=== PATIENT | male | born 1945 | race African-American/Black ===

== ENCOUNTER 2018-04-26 14:53 | Emergency (ER) | payer BC ==
[2018-04-26 16:05] LABS: #Lymphocytes 0.7 thou/uL (1.20-3.40); #Monocytes 0.6 thou/uL (0.11-0.59); %Basophils 0.5 % (0.0-1.0); %Eosinophils 0.2 % (0.0-10.0); %Lymphocytes 10.8 % (21.0-51.0); %Neutrophils 79.6 % (42.0-75.0); Hemoglobin 13.9 g/dL (14.0-18.0); Mean Corpuscular HGB CONC 33.8 g/dL (32.0-36.0); Mean Corpuscular Hemoglobin 35.1 pg (27.0-31.0); Mean Platelet Volume 6.9 fL (7.4-10.4); Platelet Count 179 thou/uL (130-400); Red Blood Cell (RBC) Count 3.95 mill/uL (4.70-6.10); White Blood Cell (WBC) Count 6.3 thou/uL (4.8-10.8)
[2018-04-26 16:15] LABS: Acetaminophen Less than 6.0 mcg/mL (10.0-30.0); Alcohol Less than 10 mg/dL (Less than 10); Salicylate Less than 8.0 mg/dL (15.0-30.0)
[2018-04-26] MEDS ORDERED: Multivitamins, Adult 10 ML, Thiamine HCl 100 MG, Folic Acid 1 MG in Dextrose 5 %-0.45 %... IV ONE (16:15)
[2018-04-26 16:18] LABS: ALT (SGPT) 52 U/L (8-55); AST (SGOT) 107 U/L (5-34); Albumin 4.6 g/dL (3.4-4.8); Alkaline Phosphatase 103 U/L (40-150); Anion Gap 20 mmol/L (10-20); BUN (Urea Nitrogen) 6 mg/dL (8.4-25.7); Bilirubin, Total 0.9 mg/dL (0.2-1.2); CK (CPK) 610 U/L (30-200); Calc. Creatinine Clearance 0 mL/min (70-130); Carbon Dioxide 22 mmol/L (23-31); Chloride 102 mmol/L (98-107); Estimated GFR-MDRD Greater than 90; Globulin 4.1 g/dL (2.4-3.5); Glucose 112 mg/dL (80-115); Lipase 16 U/L (8-78); Magnesium 1.9 mg/dL (1.6-2.6); PTT 33.5 SEC (22.9-36.1); Potassium 4.1 mmol/L (3.5-5.1); Protein, Total 8.7 g/dL (5.8-8.1); Prothrombin Time 13.5 SEC (12.0-14.7); Sodium 140 mmol/L (136-145)
[2018-04-26 16:21] LABS: CKMB 5.8 ng/mL (0-6.6); Troponin I Less than 0.010 ng/mL (< 0.028)
[2018-04-26 16:51] LABS: Bilirubin Negative (Negative); Blood, Urine Negative (Negative); Clarity CLEAR (Clear); Glucose, Urine (Dipstick) Negative (Negative); Leukocyte Trace (Negative); Nitrite Negative (Negative); Protein, Urine (Dipstick) 100 mg/dL (Neg-Trace); Specific Gravity, Urine 1.019 (1.002-1.036); pH, Urine 8.5 (5.0-9.0)
[2018-04-26 16:54] LABS: Bacteria/HPF None Seen HPF (None Seen); Hyaline Casts/LPF 0-3 HYALINE CAST LPF (0-3 Hyaline); Pathc Cast-AUWi Flag 0.14 (0-2.49); RBC/HPF 0-3 HPF (0-3); Squamous Epithelial 0-3 HPF (0-3); WBC/HPF None Seen HPF (0-3)
[2018-04-26 16:57] LABS: Renal Epithelial None Seen HPF (0-3); Transitional Epithelial NONE SEEN HPF (0-3)
[2018-04-26 17:01] LABS: Amphetamine Not Detected (NotDetected); Barbiturates Screen Not Detected (NotDetected); Benzodiazepine Screen Not Detected (NotDetected); Cocaine Metabolite Screen Not Detected (NotDetected); Medtox Control Line Valid? VALID (VALID); Medtox Reader # READER 4; Methadone Not Detected (NotDetected); Methamphetamine Not Detected (NotDetected); Opiate Screen Not Detected (NotDetected); Oxycodone Screen Not Detected (NotDetected); Phencyclidine (PCP) Not Detected (NotDetected); THC/Cannabinoid Screen Not Detected (NotDetected); Tricyclic Screen Not Detected (NotDetected)
--- NOTE | 2018-04-26 17:11 | RAD ---
AP CHEST: Indication: Vomiting, shaking. Comparison: 10-15-05 FINDINGS: The lungs are clear. Cardiomediastinal silhouette is within normal limits. There is mild scattered de generative change. IMPRESSION: No acute cardiopulmonary abnormality. POS: [facility]
--- NOTE | 2018-04-26 17:37 | CT ---
CT BRAIN WITHOUT CONTRAST: Indication: Altered mental status with vomiting and shaking. Comparison: CT of the brain with and without contrast, 08-12-05. FINDINGS: There is generalized cerebral and cerebellar atrophy. There are calcifications involving the globus p allidus. Septum pellucidum and third ventricle are midline. Mastoid air cells and visualized paranasa l sinuses are clear. There are vascular calcifications involving the major intracranial arteries. IMPRESSION: 1. No acute intracranial abnormality. 2. Generalized cerebral and cerebellar atrophy. POS: [facility]
== END 2018-04-26 18:16 | disposition home or self-care (01) ==
LOC: ERS 14:53
DX: F10.10 Alcohol abuse, uncomplicated (principal); F03.90 Unspecified dementia, unspecified severity, without behavioral disturbance, psychotic disturbance, mood disturbance, and anxiety; I10 Essential (primary) hypertension; E78.5 Hyperlipidemia, unspecified; Z79.899 Other long term (current) drug therapy
CPT/HCPCS: 36415; 70450; 71045; 80053; 80306; 80307; 81003; 81015; 82140; 82550; 82553; 83690; 83735; 84443; 84484; 85025; 85610; 85730; 93005; 96365; 96366; J3411; J7042

== ENCOUNTER 2022-02-24 14:03 | Inpatient (IN) | payer BC, MEDICARE ==
[~2022-02-24 14:03] MED LIST: Iopamidol-370 76% 500 ML 1 ML ONE
[2022-02-24 16:31] LABS: #Lymphocytes 0.5 thou/uL (1.20-3.40); #Monocytes 0.6 thou/uL (0.11-0.59); #Neutrophils 9.8 thou/uL (1.40-6.50); %Basophils 0.1 % (0.0-1.0); %Eosinophils 0.1 % (0.0-10.0); %Lymphocytes 4.9 % (21.0-51.0); %Monocytes 5.3 % (0.0-10.0); %Neutrophils 89.6 % (42.0-75.0); Hemoglobin 13.5 g/dL (14.0-18.0); Mean Corpuscular Hemoglobin 35.9 pg (27.0-31.0); Mean Platelet Volume 7.5 fL (7.4-10.4); Platelet Count 123 thou/uL (130-400); RBC Distribution Width 12.7 % (11.5-14.5); Red Blood Cell (RBC) Count 3.76 mill/uL (4.70-6.10); White Blood Cell (WBC) Count 10.9 thou/uL (4.8-10.8)
[2022-02-24 16:37] LABS: Bacteria/HPF None Seen HPF (None Seen); Bilirubin Negative (Negative); Blood, Urine Trace (Negative); Clarity Clear (Clear); Glucose, Urine (Dipstick) 50 mg/dL (Negative); Ketone, Urine Greater than 150 mg/dL (Negative); Leukocyte Negative Leu/uL (Negative); Nitrite Negative (Negative); Protein, Urine (Dipstick) 100 mg/dL (Neg-Trace); RBC/HPF 0-3 HPF (0-3); Squamous Epithelial 0-3 HPF (0-3); Urobilinogen 6 mg/dL (Less than 2); WBC/HPF 0-3 HPF (0-3); pH, Urine 5.5 (5.0-9.0)
[2022-02-24 16:52] LABS: ALT (SGPT) 47 U/L (8-55); AST (SGOT) 105 U/L (5-34); Albumin 4.4 g/dL (3.4-4.8); Alkaline Phosphatase 110 U/L (40-110); Anion Gap 26 mmol/L (10-20); BUN (Urea Nitrogen) 12 mg/dL (8.4-25.7); Bilirubin, Total 2.3 mg/dL (0.2-1.2); Calc. Creatinine Clearance 0 mL/min (70-130); Calcium 10.2 mg/dL (7.8-10.44); Carbon Dioxide 22 mmol/L (23-31); Chloride 97 mmol/L (98-107); Globulin 3.9 g/dL (2.4-3.5); Glucose 121 mg/dL (83-110); Lipase 141 U/L (8-78); Potassium 3.7 mmol/L (3.5-5.1); Protein, Total 8.3 g/dL (5.8-8.1); Sodium 141 mmol/L (136-145)
[2022-02-24 16:57] LABS: MDiff Complete? YES; Macrocytosis SLIGHT = 6-15 cells (100X) (0-5/hpf); Platelet Morphology Comment Appears Decreased; Polychromasia SLIGHT = 2-3 cells (100X) (0-2/hpf); Stomatocytes SLIGHT = 2-5 cells (100X) (0-1/hpf)
[2022-02-24] MEDS ORDERED: Thiamine HCl 200 MG/2 ML VIAL SLOW IVP SCH (19:30)
[2022-02-24] MEDS ORDERED: Acetaminophen 650 MG Suppository PR PRN (19:50)
[2022-02-24] MEDS ORDERED: Acetaminophen 325 MG TAB PO PRN (19:50)
[2022-02-24] MEDS ORDERED: Lorazepam 2 MG/ML VIAL IM PRN (19:50)
[2022-02-24] MEDS ORDERED: Ondansetron ODT 4 MG TAB PO PRN ×2 (19:50)
[2022-02-24] MEDS ORDERED: Lorazepam 1 MG TAB PO PRN (19:50)
[2022-02-24] MEDS ORDERED: Electrolyte Replacement Protocol 1 EACH FS SCH (20:00)
[2022-02-24] MEDS ORDERED: Folic Acid 1 MG TAB PO SCH (20:15)
[2022-02-24] MEDS ORDERED: Multivit, Therapeutic 1 TAB PO SCH (20:15)
[2022-02-24 20:33] LABS: #Lymphocytes 0.5 thou/uL (1.20-3.40); #Monocytes 0.6 thou/uL (0.11-0.59); #Neutrophils 7.2 thou/uL (1.40-6.50); %Eosinophils 0.2 % (0.0-10.0); %Lymphocytes 5.9 % (21.0-51.0); %Monocytes 6.7 % (0.0-10.0); %Neutrophils 87.2 % (42.0-75.0); Hemoglobin 12.9 g/dL (14.0-18.0); Mean Corpuscular HGB CONC 33.2 g/dL (32.0-36.0); Mean Corpuscular Hemoglobin 36.3 pg (27.0-31.0); Mean Platelet Volume 7.4 fL (7.4-10.4); Platelet Count 117 thou/uL (130-400); RBC Distribution Width 12.8 % (11.5-14.5); Red Blood Cell (RBC) Count 3.54 mill/uL (4.70-6.10); White Blood Cell (WBC) Count 8.2 thou/uL (4.8-10.8)
[2022-02-24 20:39] LABS: ALT (SGPT) 41 U/L (8-55); AST (SGOT) 88 U/L (5-34); Alkaline Phosphatase 94 U/L (40-110); Anion Gap 23 mmol/L (10-20); BUN (Urea Nitrogen) 9 mg/dL (8.4-25.7); Bilirubin, Direct 1.2 mg/dL (0.1-0.3); Bilirubin, Total 1.9 mg/dL (0.2-1.2); Calc. Creatinine Clearance 0 mL/min (70-130); Carbon Dioxide 18 mmol/L (23-31); Chloride 99 mmol/L (98-107); Globulin 3.3 g/dL (2.4-3.5); Glucose 322 mg/dL (83-110); Magnesium 1.4 mg/dL (1.6-2.6); Potassium 3.8 mmol/L (3.5-5.1); Protein, Total 7.3 g/dL (5.8-8.1); Sodium 136 mmol/L (136-145)
[2022-02-24 20:46] LABS: Phosphorus 1.6 mg/dL (2.3-4.7)
[2022-02-24] MEDS: Lorazepam 1 MG TAB PO SCH (21:47)
[2022-02-24] MEDS: Ondansetron PF 4 MG/2 ML Vial IVP PRN (21:47)
[2022-02-24] MEDS ORDERED: Sodium Chloride 0.9% (PF) 10 ML VIAL FS PRN (22:15)
[2022-02-24] MEDS ORDERED: Pantoprazole 40 MG VIAL IVP SCH (22:30)
[2022-02-24] MEDS ORDERED: Potassium Phosphate 15 MMOL in Sodium Chloride 0.9% 100 ML IVPB SCH (23:59)
[2022-02-24] MEDS ORDERED: Magnesium Sulfate In Water 4 GM in Premix Bag 1 BAG IVPB SCH (23:59)
[2022-02-25 00:36] LABS: Amphetamine Not Detected (NotDetected); Barbiturates Screen Not Detected (NotDetected); Benzodiazepine Screen Not Detected (NotDetected); Cocaine Metabolite Screen Not Detected (NotDetected); Methadone Not Detected (NotDetected); Methamphetamine Not Detected (NotDetected); Opiate Screen Not Detected (NotDetected); Oxycodone Screen Not Detected (NotDetected); Phencyclidine (PCP) Not Detected (NotDetected); THC/Cannabinoid Screen Not Detected (NotDetected); Tricyclic Screen Not Detected (NotDetected)
[2022-02-25] MEDS: Lorazepam 1 MG TAB PO SCH ×4 (02:30→20:03)
[2022-02-25 06:19] LABS: #Lymphocytes 0.7 thou/uL (1.20-3.40); #Monocytes 0.7 thou/uL (0.11-0.59); #Neutrophils 6.1 thou/uL (1.40-6.50); %Basophils 0.3 % (0.0-1.0); %Eosinophils 0.6 % (0.0-10.0); %Lymphocytes 9.2 % (21.0-51.0); %Monocytes 9.6 % (0.0-10.0); %Neutrophils 80.3 % (42.0-75.0); Hemoglobin 13.4 g/dL (14.0-18.0); Mean Corpuscular Hemoglobin 35.8 pg (27.0-31.0); Mean Platelet Volume 7.8 fL (7.4-10.4); Platelet Count 124 thou/uL (130-400); RBC Distribution Width 12.8 % (11.5-14.5); Red Blood Cell (RBC) Count 3.74 mill/uL (4.70-6.10); White Blood Cell (WBC) Count 7.6 thou/uL (4.8-10.8)
[2022-02-25 06:43] LABS: Anion Gap 18 mmol/L (10-20); BUN (Urea Nitrogen) 7 mg/dL (8.4-25.7); Calc. Creatinine Clearance 76 mL/min (70-130); Calcium 9.3 mg/dL (7.8-10.44); Carbon Dioxide 23 mmol/L (23-31); Chloride 100 mmol/L (98-107); Glucose 126 mg/dL (83-110); Potassium 3.2 mmol/L (3.5-5.1); Sodium 138 mmol/L (136-145)
[2022-02-25] MEDS ORDERED: Potassium Chloride 20 MEQ TAB PO SCH (07:15)
[2022-02-25] MEDS: Folic Acid 1 MG TAB PO SCH (09:22)
[2022-02-25] MEDS: Multivit, Therapeutic 1 TAB PO SCH (09:22)
[2022-02-25] MEDS: Pantoprazole 40 MG VIAL IVP SCH (09:22)
[2022-02-25] MEDS: Enoxaparin Sodium 40 MG/0.4 ML SYRINGE SC SCH (09:23)
[2022-02-25 11:35] LABS: Syphilis Antibody Nonreactive (Nonreactive); Syphilis Antibody Index 0.22 S/CO (<1.00 Non-Reactive)
[2022-02-25 12:35] LABS: SARS-CoV-2 PCR by NAA Not Detected (NotDetected)
[2022-02-25] MEDS: Thiamine HCl 200 MG/2 ML VIAL SLOW IVP SCH (20:02)
[2022-02-25] MEDS: Lorazepam 1 MG TAB PO PRN (23:49)
[2022-02-26] MEDS: Lorazepam 1 MG TAB PO SCH ×3 (01:01→13:44)
[2022-02-26] MEDS: Lorazepam 1 MG TAB PO PRN ×2 (05:05→13:00)
[2022-02-26 06:24] LABS: Mean Corpuscular HGB CONC 32.9 g/dL (32.0-36.0); Mean Corpuscular Hemoglobin 35.8 pg (27.0-31.0); RBC Distribution Width 12.6 % (11.5-14.5); Red Blood Cell (RBC) Count 4.48 mill/uL (4.70-6.10); White Blood Cell (WBC) Count 8.9 thou/uL (4.8-10.8)
[2022-02-26 06:37] LABS: #Lymphocytes 1.2 thou/uL (1.20-3.40); #Monocytes 0.9 thou/uL (0.11-0.59); #Neutrophils 6.7 thou/uL (1.40-6.50); %Basophils 0.2 % (0.0-1.0); %Eosinophils 0.5 % (0.0-10.0); %Monocytes 9.7 % (0.0-10.0); %Neutrophils 75.6 % (42.0-75.0); MDiff Complete? YES; Macrocytosis SLIGHT = 6-15 cells (100X) (0-5/hpf); Platelet Count 94 thou/uL (130-400); Platelet Morphology Comment Appears Decreased
[2022-02-26 07:00] LABS: Anion Gap 24 mmol/L (10-20); BUN (Urea Nitrogen) 9 mg/dL (8.4-25.7); Calc. Creatinine Clearance 70 mL/min (70-130); Calcium 9.5 mg/dL (7.8-10.44); Carbon Dioxide 12 mmol/L (23-31); Chloride 99 mmol/L (98-107); Glucose 140 mg/dL (83-110); Potassium 5.1 mmol/L (3.5-5.1); Sodium 130 mmol/L (136-145)
[2022-02-26] MEDS: Multivit, Therapeutic 1 TAB PO SCH (09:02)
[2022-02-26] MEDS: Folic Acid 1 MG TAB PO SCH (09:02)
[2022-02-26] MEDS: Pantoprazole 40 MG VIAL IVP SCH (09:03)
[2022-02-26] MEDS: Enoxaparin Sodium 40 MG/0.4 ML SYRINGE SC SCH (11:59)
[2022-02-26] MEDS: Multivitamins, Adult 10 ML, Folic Acid 1 MG, Thiamine HCl 100 MG in Dextrose 5 %-0.45 %... IV SCH (13:43)
[2022-02-26] MEDS: Lorazepam 0.5 MG TAB PO SCH (19:51)
[2022-02-26] MEDS ORDERED: Lorazepam 1 MG TAB PO PRN (19:51)
[2022-02-26] MEDS: Thiamine HCl 200 MG/2 ML VIAL SLOW IVP SCH (20:00)
[2022-02-27] MEDS: Lorazepam 0.5 MG TAB PO SCH ×3 (00:39→14:51)
[2022-02-27 07:24] LABS: #Eosinphils 0.1 thou/uL (0.0-0.7); #Lymphocytes 0.6 thou/uL (1.20-3.40); #Monocytes 0.6 thou/uL (0.11-0.59); #Neutrophils 5.2 thou/uL (1.40-6.50); %Basophils 0.1 % (0.0-1.0); %Eosinophils 0.9 % (0.0-10.0); %Lymphocytes 8.8 % (21.0-51.0); %Monocytes 8.7 % (0.0-10.0); %Neutrophils 81.5 % (42.0-75.0); Hemoglobin 14.8 g/dL (14.0-18.0); Mean Corpuscular HGB CONC 33.2 g/dL (32.0-36.0); Mean Corpuscular Hemoglobin 36.5 pg (27.0-31.0); Mean Platelet Volume 8.6 fL (7.4-10.4); Platelet Count 125 thou/uL (130-400); RBC Distribution Width 12.7 % (11.5-14.5); Red Blood Cell (RBC) Count 4.06 mill/uL (4.70-6.10); White Blood Cell (WBC) Count 6.3 thou/uL (4.8-10.8)
[2022-02-27 09:19] LABS: Chloride 95 mmol/L (98-107); Sodium 131 mmol/L (136-145)
[2022-02-27 09:20] LABS: Calcium 9.5 mg/dL (7.8-10.44); Glucose 147 mg/dL (83-110)
[2022-02-27 09:22] LABS: Anion Gap 14 mmol/L (10-20); Carbon Dioxide 25 mmol/L (23-31)
[2022-02-27 09:23] LABS: Potassium 2.8 mmol/L (3.5-5.1)
[2022-02-27 09:24] LABS: BUN (Urea Nitrogen) 8 mg/dL (8.4-25.7); Calc. Creatinine Clearance 72 mL/min (70-130)
[2022-02-27] MEDS ORDERED: Potassium Chloride 20 MEQ TAB PO SCH ×3 (10:00→23:45)
[2022-02-27] MEDS: Folic Acid 1 MG TAB PO SCH (10:22)
[2022-02-27] MEDS: Multivit, Therapeutic 1 TAB PO SCH (10:22)
[2022-02-27] MEDS: Enoxaparin Sodium 40 MG/0.4 ML SYRINGE SC SCH (10:22)
[2022-02-27] MEDS: Multivitamins, Adult 10 ML, Folic Acid 1 MG, Thiamine HCl 100 MG in Dextrose 5 %-0.45 %... IV SCH (16:37)
[2022-02-27] MEDS: Ondansetron PF 4 MG/2 ML Vial IVP PRN (18:20)
[2022-02-27 18:41] LABS: Potassium 3.6 mmol/L (3.5-5.1)
[2022-02-27] MEDS ORDERED: Sodium Chloride 0.9% 1,000 ML IV SCH ×3 (19:00→23:45)
[2022-02-27] MEDS ORDERED: Lorazepam 0.5 MG TAB PO PRN (19:51)
[2022-02-27] MEDS: Thiamine 100 MG TAB PO SCH (21:01)
[2022-02-27 22:20] LABS: Hemoglobin 13.2 g/dL (14.0-18.0); Mean Corpuscular HGB CONC 32.9 g/dL (32.0-36.0); Mean Corpuscular Hemoglobin 36.1 pg (27.0-31.0); Mean Platelet Volume 8.7 fL (7.4-10.4); Platelet Count 136 thou/uL (130-400); RBC Distribution Width 12.7 % (11.5-14.5); Red Blood Cell (RBC) Count 3.65 mill/uL (4.70-6.10); White Blood Cell (WBC) Count 7.2 thou/uL (4.8-10.8)
[2022-02-27 22:36] LABS: Band 27 % (5-11); Lymphocytes 4 % (21-51); MDiff Complete? YES; Macrocytosis SLIGHT = 6-15 cells (100X) (0-5/hpf); Neutrophil 69 % (42-75); Platelet Morphology Comment Appears Adequate
[2022-02-27 22:38] LABS: ALT (SGPT) 84 U/L (8-55); AST (SGOT) 291 U/L (5-34); Alkaline Phosphatase 311 U/L (40-110); Anion Gap 17 mmol/L (10-20); BUN (Urea Nitrogen) 16 mg/dL (8.4-25.7); Bilirubin, Total 2.6 mg/dL (0.2-1.2); Calc. Creatinine Clearance 50 mL/min (70-130); Calcium 8.9 mg/dL (7.8-10.44); Carbon Dioxide 20 mmol/L (23-31); Chloride 100 mmol/L (98-107); Globulin 2.8 g/dL (2.4-3.5); Glucose 163 mg/dL (83-110); Magnesium 1.2 mg/dL (1.6-2.6); Potassium 3.3 mmol/L (3.5-5.1); Protein, Total 5.8 g/dL (5.8-8.1); Sodium 134 mmol/L (136-145)
[2022-02-27 22:48] LABS: Lactic Acid 6.8 mmol/L (0.5-2.2)
[2022-02-27] MEDS ORDERED: Magnesium Sulfate 4 GM in Sodium Chloride 0.9% 250 ML 250 ML IVPB SCH (23:45)
[2022-02-27] MEDS ORDERED: Magnesium Sulfate In Water 4 GM in Premix Bag 1 BAG IVPB SCH (23:45)
[2022-02-28 01:24] LABS: Bacteria/HPF None Seen HPF (None Seen); Bilirubin 1+ (Negative); Blood, Urine Negative (Negative); Clarity Turbid (Clear); Glucose, Urine (Dipstick) 30 mg/dL (Negative); Ketone, Urine Negative (Negative); Leukocyte Negative Leu/uL (Negative); Nitrite Negative (Negative); Protein, Urine (Dipstick) 30 mg/dL (Neg-Trace); RBC/HPF 0-3 HPF (0-3); Specific Gravity, Urine 1.019 (1.002-1.036); Squamous Epithelial 0-3 HPF (0-3); Urobilinogen Greater than 12 mg/dL (Less than 2); WBC/HPF Greater than 50 HPF (0-3)
[2022-02-28 01:25] LABS: Urine Culture Reflex Yes Yes
[2022-02-28 04:31] LABS: Lactic Acid 3.1 mmol/L (0.5-2.2)
[2022-02-28 04:36] LABS: Anion Gap 14 mmol/L (10-20); BUN (Urea Nitrogen) 15 mg/dL (8.4-25.7); Calc. Creatinine Clearance 54 mL/min (70-130); Calcium 8.5 mg/dL (7.8-10.44); Carbon Dioxide 19 mmol/L (23-31); Chloride 104 mmol/L (98-107); Glucose 176 mg/dL (83-110); Potassium 3.3 mmol/L (3.5-5.1); Sodium 134 mmol/L (136-145)
[2022-02-28 05:15] LABS: Band 28 % (5-11); Hemoglobin 11.8 g/dL (14.0-18.0); Hypochromia SLIGHT = 6-15 cells (100X) (0-5/hpf); Lymphocytes 3 % (21-51); MDiff Complete? YES; Macrocytosis SLIGHT = 6-15 cells (100X) (0-5/hpf); Mean Corpuscular HGB CONC 33.8 g/dL (32.0-36.0); Mean Corpuscular Hemoglobin 37.1 pg (27.0-31.0); Mean Platelet Volume 8.4 fL (7.4-10.4); Monocytes 19 % (0-10); Neutrophil 50 % (42-75); Platelet Count 107 thou/uL (130-400); Platelet Morphology Comment Appears Decreased; Red Blood Cell (RBC) Count 3.19 mill/uL (4.70-6.10); White Blood Cell (WBC) Count 14.1 thou/uL (4.8-10.8)
[2022-02-28] MEDS ORDERED: Potassium Chloride 20 MEQ TAB PO SCH (06:30)
[2022-02-28] MEDS: Enoxaparin Sodium 40 MG/0.4 ML SYRINGE SC SCH (08:58)
[2022-02-28] MEDS: Multivit, Therapeutic 1 TAB PO SCH (08:58)
[2022-02-28] MEDS: Folic Acid 1 MG TAB PO SCH (08:58)
[2022-02-28] MEDS ORDERED: Piperacillin/Tazobactam 3.375 GM in Sodium Chloride 0.9% 100 ML IVPB SCH ×2 (10:45→12:00)
[2022-02-28] MEDS: Piperacillin/Tazobactam 3.375 GM in Sodium Chloride 0.9% 100 ML IVPB SCH (15:12)
[2022-02-28 16:00] VITALS: BMI 19.7
[2022-02-28] MEDS: Multivitamins, Adult 10 ML, Folic Acid 1 MG, Thiamine HCl 100 MG in Dextrose 5 %-0.45 %... IV SCH (16:03)
[2022-02-28] MEDS: Lorazepam 2 MG/ML VIAL SLOW IVP PRN (20:22)
[2022-03-01] MEDS: Piperacillin/Tazobactam 3.375 GM in Sodium Chloride 0.9% 100 ML IVPB SCH ×4 (00:02→22:49)
[2022-03-01] MEDS: Thiamine 100 MG TAB PO SCH ×2 (00:14→19:57)
[2022-03-01] MEDS: Lorazepam 2 MG/ML VIAL SLOW IVP PRN (02:38)
[2022-03-01 03:54] LABS: Anion Gap 14 mmol/L (10-20); BUN (Urea Nitrogen) 8 mg/dL (8.4-25.7); Calc. Creatinine Clearance 77 mL/min (70-130); Calcium 9.3 mg/dL (7.8-10.44); Carbon Dioxide 20 mmol/L (23-31); Chloride 109 mmol/L (98-107); Glucose 125 mg/dL (83-110); Potassium 3.7 mmol/L (3.5-5.1); Sodium 139 mmol/L (136-145)
[2022-03-01 03:56] LABS: Band 30 % (5-11); Hemoglobin 11.8 g/dL (14.0-18.0); Lymphocytes 7 % (21-51); MDiff Complete? YES; Macrocytosis MODERATE=16-30 cells (100X) (0-5/hpf); Mean Corpuscular HGB CONC 32.7 g/dL (32.0-36.0); Mean Corpuscular Hemoglobin 36.2 pg (27.0-31.0); Mean Platelet Volume 7.9 fL (7.4-10.4); Metamyelocyte 4 % (0-0); Monocytes 9 % (0-10); Neutrophil 50 % (42-75); Platelet Count 142 thou/uL (130-400); Platelet Morphology Comment Appears Adequate; RBC Distribution Width 13.1 % (11.5-14.5); Red Blood Cell (RBC) Count 3.26 mill/uL (4.70-6.10); White Blood Cell (WBC) Count 18.6 thou/uL (4.8-10.8)
[2022-03-01] MEDS: Multivit, Therapeutic 1 TAB PO SCH (08:36)
[2022-03-01] MEDS: Folic Acid 1 MG TAB PO SCH (08:36)
[2022-03-01] MEDS: Enoxaparin Sodium 40 MG/0.4 ML SYRINGE SC SCH (08:36)
[2022-03-01] MEDS ORDERED: Phenylephrine 0.25% Nasal Spray 15 ML BOT ONE (12:17)
[2022-03-02 04:10] LABS: Anion Gap 13 mmol/L (10-20); BUN (Urea Nitrogen) 12 mg/dL (8.4-25.7); Calc. Creatinine Clearance 90 mL/min (70-130); Calcium 9.7 mg/dL (7.8-10.44); Carbon Dioxide 20 mmol/L (23-31); Chloride 108 mmol/L (98-107); Glucose 98 mg/dL (83-110); Potassium 3.7 mmol/L (3.5-5.1); Sodium 137 mmol/L (136-145)
[2022-03-02 05:45] LABS: Band 34 % (5-11); Hemoglobin 12.4 g/dL (14.0-18.0); Hypochromia SLIGHT = 6-15 cells (100X) (0-5/hpf); Lymphocytes 13 % (21-51); MDiff Complete? YES; Macrocytosis SLIGHT = 6-15 cells (100X) (0-5/hpf); Mean Corpuscular HGB CONC 33.8 g/dL (32.0-36.0); Mean Corpuscular Hemoglobin 37.3 pg (27.0-31.0); Mean Platelet Volume 8.2 fL (7.4-10.4); Monocytes 2 % (0-10); Neutrophil 49 % (42-75); Platelet Count 159 thou/uL (130-400); Platelet Morphology Comment Appears Adequate; RBC Distribution Width 12.9 % (11.5-14.5); Reactive Lymphocytes 2 % (0-10); Red Blood Cell (RBC) Count 3.33 mill/uL (4.70-6.10); White Blood Cell (WBC) Count 14.6 thou/uL (4.8-10.8)
[2022-03-02] MEDS: Piperacillin/Tazobactam 3.375 GM in Sodium Chloride 0.9% 100 ML IVPB SCH ×3 (06:02→23:12)
[2022-03-02] MEDS: Folic Acid 1 MG TAB PO SCH (08:40)
[2022-03-02] MEDS: Multivit, Therapeutic 1 TAB PO SCH (08:40)
[2022-03-02] MEDS: Enoxaparin Sodium 40 MG/0.4 ML SYRINGE SC SCH (08:40)
[2022-03-02] MEDS: Thiamine 100 MG TAB PO SCH (20:48)
[2022-03-03 05:00] LABS: Anion Gap 15 mmol/L (10-20); BUN (Urea Nitrogen) 12 mg/dL (8.4-25.7); Calc. Creatinine Clearance 78 mL/min (70-130); Calcium 9.5 mg/dL (7.8-10.44); Carbon Dioxide 20 mmol/L (23-31); Chloride 107 mmol/L (98-107); Glucose 123 mg/dL (83-110); Potassium 4.2 mmol/L (3.5-5.1); Sodium 138 mmol/L (136-145)
[2022-03-03 05:21] LABS: Band 7 % (5-11); Hemoglobin 12.6 g/dL (14.0-18.0); Lymphocytes 14 % (21-51); MDiff Complete? YES; Macrocytosis MODERATE=16-30 cells (100X) (0-5/hpf); Mean Corpuscular HGB CONC 33.9 g/dL (32.0-36.0); Mean Corpuscular Hemoglobin 36.9 pg (27.0-31.0); Mean Platelet Volume 8.3 fL (7.4-10.4); Metamyelocyte 1 % (0-0); Monocytes 8 % (0-10); Neutrophil 70 % (42-75); Platelet Count 218 thou/uL (130-400); Platelet Morphology Comment Appears Adequate; RBC Distribution Width 12.8 % (11.5-14.5); Red Blood Cell (RBC) Count 3.41 mill/uL (4.70-6.10); Stomatocytes SLIGHT = 2-5 cells (100X) (0-1/hpf); White Blood Cell (WBC) Count 10.4 thou/uL (4.8-10.8)
[2022-03-03] MEDS: Piperacillin/Tazobactam 3.375 GM in Sodium Chloride 0.9% 100 ML IVPB SCH ×3 (06:53→23:42)
[2022-03-03] MEDS: Folic Acid 1 MG TAB PO SCH (09:15)
[2022-03-03] MEDS: Multivit, Therapeutic 1 TAB PO SCH (09:15)
[2022-03-03] MEDS: Enoxaparin Sodium 40 MG/0.4 ML SYRINGE SC SCH (09:15)
[2022-03-03] MEDS: Thiamine 100 MG TAB PO SCH (20:36)
[2022-03-04 00:50] LABS: SARS-CoV-2 PCR by NAA Not Detected (NotDetected)
[2022-03-04] MEDS: Piperacillin/Tazobactam 3.375 GM in Sodium Chloride 0.9% 100 ML IVPB SCH ×2 (05:10→14:22)
[2022-03-04 05:42] VITALS: TEMP 98.3
[2022-03-04 07:41] LABS: Hemoglobin 12.7 g/dL (14.0-18.0); Mean Corpuscular HGB CONC 33.7 g/dL (32.0-36.0); Mean Corpuscular Hemoglobin 36.4 pg (27.0-31.0); Mean Platelet Volume 7.9 fL (7.4-10.4); Platelet Count 251 thou/uL (130-400); Red Blood Cell (RBC) Count 3.49 mill/uL (4.70-6.10); White Blood Cell (WBC) Count 9.4 thou/uL (4.8-10.8)
[2022-03-04 07:58] LABS: Anion Gap 13 mmol/L (10-20); BUN (Urea Nitrogen) 10 mg/dL (8.4-25.7); Calc. Creatinine Clearance 79 mL/min (70-130); Calcium 9.4 mg/dL (7.8-10.44); Carbon Dioxide 22 mmol/L (23-31); Chloride 105 mmol/L (98-107); Glucose 120 mg/dL (83-110); Potassium 3.1 mmol/L (3.5-5.1); Sodium 137 mmol/L (136-145)
[2022-03-04] MEDS ORDERED: Potassium Chloride 20 MEQ TAB PO SCH ×2 (08:00→08:45)
[2022-03-04 08:08] VITALS: BP 187/95
[2022-03-04 09:05] LABS: Band 8 % (5-11); Eosinophils 1 % (0-10); Lymphocytes 11 % (21-51); MDiff Complete? YES; Macrocytosis SLIGHT = 6-15 cells (100X) (0-5/hpf); Metamyelocyte 1 % (0-0); Monocytes 15 % (0-10); Neutrophil 60 % (42-75); Nucleated RBC 2 % (0); Platelet Morphology Comment Appears Adequate; Polychromasia SLIGHT = 2-3 cells (100X) (0-2/hpf); Reactive Lymphocytes 4 % (0-10)
[2022-03-04] MEDS: Multivit, Therapeutic 1 TAB PO SCH (09:09)
[2022-03-04] MEDS: Enoxaparin Sodium 40 MG/0.4 ML SYRINGE SC SCH (09:09)
[2022-03-04] MEDS: Folic Acid 1 MG TAB PO SCH (09:09)
== END 2022-03-04 18:43 | DRG 896 ==
LOC: ERS 14:03 → T4-A 19:39 → IMCU/EMU 02-27 19:47 → T4-B 03-03 23:07
PROVIDERS: ADMIT Student in an Organized Health Care Education/Training Program; ATTEND Internal Medicine
PROC: HZ2ZZZZ Detoxification Services for Substance Abuse Treatment (ICD-10-PCS; principal; 2022-02-24)
PROC: 3E03329 Introduction of Other Anti-infective into Peripheral Vein, Percutaneous Approach (ICD-10-PCS; 2022-02-28)
DX: F10.239 Alcohol dependence with withdrawal, unspecified (principal); Z20.822 Contact with and (suspected) exposure to COVID-19; G93.41 Metabolic encephalopathy; A41.9 Sepsis, unspecified organism; N39.0 Urinary tract infection, site not specified; E87.1 Hypo-osmolality and hyponatremia; F03.91 Unspecified dementia, unspecified severity, with behavioral disturbance; E87.2 Acidosis; R19.07 Generalized intra-abdominal and pelvic swelling, mass and lump; E78.5 Hyperlipidemia, unspecified; Z60.2 Problems related to living alone; I10 Essential (primary) hypertension; K70.0 Alcoholic fatty liver; E80.6 Other disorders of bilirubin metabolism; E87.6 Hypokalemia; Z78.1 Physical restraint status
CPT/HCPCS: 36415; 36416; 70450; 74177; 80048; 80053; 80306; 80307; 81001; 81003; 81015; 82248; 83605; 83690; 83735; 84100; 84484; 85025; 86780; 87040; 87086; 93005; 93010; 95712; 95816; 95819; 95957; 96374; C9113; J1650; J2060; J2405; J2543; J3411; J3475; J3490; J7042; J7050; Q9967; U0003; U0005

== ENCOUNTER 2023-04-15 16:22 | Inpatient (IN) | payer MEDICARE, BC ==
[~2023-04-15 16:22] MED LIST changes: +Iopamidol 370 76% 100 ML VIAL ONE; -Iopamidol-370 76% 500 ML 1 ML ONE
[2023-04-15] MEDS ORDERED: Aspirin Chewable 81 MG TAB ONE (16:37)
[2023-04-15] MEDS ORDERED: Metoprolol Tartrate 5 MG/5 ML VIAL ONE (16:37)
[2023-04-15] MEDS ORDERED: Nitroglycerin 2% Ointment 1 INCH/1 GM Packet ONE (16:50)
[2023-04-15] MEDS ORDERED: Ondansetron PF 4 MG/2 ML Vial ONE (16:50)
[2023-04-15 16:53] LABS: #Monocytes 0.8 thou/uL (0.11-0.59); #Neutrophils 7.8 thou/uL (1.40-6.50); %Basophils 0.3 % (0.0-1.0); %Eosinophils 0.2 % (0.0-10.0); %Lymphocytes 16.5 % (21.0-51.0); %Monocytes 7.6 % (0.0-10.0); Hemoglobin 13.5 g/dL (14.0-18.0); Mean Corpuscular HGB CONC 33.7 g/dL (32.0-36.0); Mean Corpuscular Hemoglobin 30.4 pg (27.0-31.0); Mean Corpuscular Volume 90.3 fl (78.0-98.0); Mean Platelet Volume 9.5 fL (7.4-10.4); Platelet Count 295 10x3/uL (130-400); RBC Distribution Width 13.7 % (11.5-14.5); Red Blood Cell (RBC) Count 4.44 mill/uL (4.70-6.10); White Blood Cell (WBC) Count 10.4 10x3/uL (4.8-10.8)
[2023-04-15] MEDS ORDERED: fentaNYL 50 mcg/mL 1 mL Vial ONE (16:55)
[2023-04-15] MEDS ORDERED: Midazolam HCl 2 mg/2 ml Vial ONE (16:56)
[2023-04-15] MEDS ORDERED: Adenosine 6 MG/2 ML VIAL ONE (16:56)
[2023-04-15] MEDS ORDERED: Lidocaine 1% (PF) 30 ML VIAL ONE (16:56)
[2023-04-15] MEDS ORDERED: Heparin 10,000 UNITS/ 10 ML VIAL ONE (16:56)
[2023-04-15] MEDS ORDERED: Verapamil 5 MG/2 ML VIAL ONE (16:56)
[2023-04-15 17:21] LABS: ALT (SGPT) 12 U/L (8-55); AST (SGOT) 39 U/L (5-34); Albumin 4.3 g/dL (3.4-4.8); Alkaline Phosphatase 135 U/L (40-110); Anion Gap 15 mmol/L (10-20); BUN (Urea Nitrogen) 10 mg/dL (8.4-25.7); Bilirubin, Total 0.5 mg/dL (0.2-1.2); Calc. Creatinine Clearance 0 mL/min (70-130); Carbon Dioxide 26 mmol/L (23-31); Chloride 97 mmol/L (98-107); Estimated GFR 91; Globulin 3.8 g/dL (2.4-3.5); Glucose 201 mg/dL (83-110); Lipase 27 U/L (8-78); Potassium 3.1 mmol/L (3.5-5.1); Protein, Total 8.1 g/dL (5.8-8.1); Sodium 135 mmol/L (136-145)
[2023-04-15 17:44] LABS: CKMB 34.4 ng/mL (0-6.6)
[2023-04-15] MEDS ORDERED: TICAGRELOR 90 MG TABLET ONE (17:56)
[2023-04-15] MEDS ORDERED: Milk Of Magnesia 30 ML UDCUP PO PRN (18:02)
[2023-04-15] MEDS ORDERED: Acetaminophen/Codeine 30-300mg Tablet PO PRN (18:02)
[2023-04-15] MEDS ORDERED: Mag-Al 1200 mg/1200 mg/30 ML UDCUP PO PRN (18:02)
[2023-04-15] MEDS ORDERED: Sodium Chloride 0.9% 1,000 ML IV SCH (18:15)
[2023-04-15] MEDS ORDERED: Nitroglycerin 50 MG/250 ML BOT 0 ML ONE (18:17)
[2023-04-15 20:18] LABS: Troponin I 28.958 ng/mL (< 0.028)
[2023-04-15 20:33] VITALS: BMI 26.9
[2023-04-15] MEDS: Atorvastatin Calcium 40 MG TAB PO SCH (20:56)
[2023-04-16 01:43] LABS: Troponin I 84.981 ng/mL (< 0.028)
[2023-04-16 03:53] LABS: #Eosinphils 0.1 thou/uL (0.0-0.7); #Monocytes 0.9 thou/uL (0.11-0.59); %Basophils 0.3 % (0.0-1.0); %Eosinophils 0.6 % (0.0-10.0); %Lymphocytes 17.3 % (21.0-51.0); %Monocytes 10.9 % (0.0-10.0); %Neutrophils 70.4 % (42.0-75.0); Hemoglobin 12.2 g/dL (14.0-18.0); Mean Corpuscular Hemoglobin 30.1 pg (27.0-31.0); Mean Platelet Volume 9.6 fL (7.4-10.4); Platelet Count 256 10x3/uL (130-400); Red Blood Cell (RBC) Count 4.05 mill/uL (4.70-6.10); White Blood Cell (WBC) Count 8.6 10x3/uL (4.8-10.8)
[2023-04-16 04:00] LABS: Mean Corpuscular Volume 94.1 fl (78.0-98.0)
[2023-04-16 04:15] LABS: ALT (SGPT) 33 U/L (8-55); AST (SGOT) 211 U/L (5-34); Albumin 3.6 g/dL (3.4-4.8); Alkaline Phosphatase 110 U/L (40-110); Anion Gap 14 mmol/L (10-20); BUN (Urea Nitrogen) 6 mg/dL (8.4-25.7); Bilirubin, Total 0.5 mg/dL (0.2-1.2); Calc. Creatinine Clearance 94 mL/min (70-130); Calcium 10.4 mg/dL (7.8-10.44); Carbon Dioxide 22 mmol/L (23-31); Chloride 105 mmol/L (98-107); Estimated GFR 94; Globulin 2.9 g/dL (2.4-3.5); Glucose 150 mg/dL (83-110); Potassium 3.1 mmol/L (3.5-5.1); Protein, Total 6.5 g/dL (5.8-8.1); Sodium 138 mmol/L (136-145)
[2023-04-16] MEDS ORDERED: Potassium Bicarbonate/Cit Ac 20 MEQ TAB PO SCH (06:30)
[2023-04-16] MEDS: Carvedilol 3.125 MG TAB PO SCH ×2 (08:01→17:53)
[2023-04-16] MEDS: Clopidogrel Bisulfate 75 MG TAB PO SCH (08:01)
[2023-04-16 13:15] VITALS: TEMP 98.5
[2023-04-16 17:52] LABS: Anion Gap 12 mmol/L (10-20); BUN (Urea Nitrogen) 10 mg/dL (8.4-25.7); Calc. Creatinine Clearance 83 mL/min (70-130); Calcium 10.2 mg/dL (7.8-10.44); Carbon Dioxide 26 mmol/L (23-31); Chloride 102 mmol/L (98-107); Estimated GFR 91; Glucose 160 mg/dL (83-110); Potassium 3.5 mmol/L (3.5-5.1); Sodium 136 mmol/L (136-145)
[2023-04-16] MEDS: Atorvastatin Calcium 40 MG TAB PO SCH (21:14)
[2023-04-17] MEDS: Carvedilol 3.125 MG TAB PO SCH (07:26)
[2023-04-17] MEDS: Clopidogrel Bisulfate 75 MG TAB PO SCH (07:26)
[2023-04-17 11:09] VITALS: BP 129/92
== END 2023-04-17 14:22 | disposition home or self-care (01) | DRG 247 ==
LOC: ERS 16:22 → CCU 18:31
PROVIDERS: ADMIT Internal Medicine Cardiovascular Disease; ATTEND Internal Medicine Cardiovascular Disease
PROC: 027034Z Dilation of Coronary Artery, One Artery with Drug-eluting Intraluminal Device, Percutaneous Approach (ICD-10-PCS; principal; 2023-04-15)
PROC: 4A023N7 Measurement of Cardiac Sampling and Pressure, Left Heart, Percutaneous Approach (ICD-10-PCS; 2023-04-15)
PROC: B2111ZZ Fluoroscopy of Multiple Coronary Arteries using Low Osmolar Contrast (ICD-10-PCS; 2023-04-15)
PROC: B2151ZZ Fluoroscopy of Left Heart using Low Osmolar Contrast (ICD-10-PCS; 2023-04-15)
DX: I21.19 ST elevation (STEMI) myocardial infarction involving other coronary artery of inferior wall (principal); I47.29 Other ventricular tachycardia; I25.10 Atherosclerotic heart disease of native coronary artery without angina pectoris; I10 Essential (primary) hypertension; E78.5 Hyperlipidemia, unspecified; F03.90 Unspecified dementia, unspecified severity, without behavioral disturbance, psychotic disturbance, mood disturbance, and anxiety
CPT/HCPCS: 36415; 36416; 71045; 80053; 82553; 83690; 83880; 84484; 85025; 85347; 92928; 93005; 93010; 93306; 93458; 93798; 94760; 96374; 96375; 99152; 99153; C1769; C1874; C1876; C1887; C9600; J0153; J1644; J2001; J2250; J2405; J3010; J7050; Q9967

== ENCOUNTER 2024-09-02 11:00 | Inpatient (IN) | payer MEDICARE, BC ==
[2024-09-02 12:13] LABS: #Basophils 0.03 10x3/uL (0.0-0.2); #Eosinophils Less than 0.03 10x3/uL (0.0-0.7); %Basophils 0.4 % (0.0-1.0); %Eosinophils 0.1 % (0.0-10.0); %Monocytes 9.4 % (0.0-10.0); %Neutrophils 69.7 % (42.0-75.0); Hematocrit 36.6 % (42.0-52.0); Hemoglobin 12.2 g/dL (14.0-18.0); Mean Corpuscular HGB CONC 33.3 g/dL (32.0-36.0); Mean Corpuscular Hemoglobin 32.6 pg (27.0-31.0); Mean Corpuscular Volume 97.9 fL (78.0-98.0); Mean Platelet Volume 10.4 fL (7.4-10.4); Platelet Count 181 10x3/uL (130-400); RBC Distribution Width 14.6 % (11.5-14.5); Red Blood Cell (RBC) Count 3.74 mill/uL (4.70-6.10)
[2024-09-02 12:55] LABS: ALT (SGPT) 45 U/L (8-55); AST (SGOT) 78 U/L (5-34); Albumin 4.4 g/dL (3.4-4.8); Alkaline Phosphatase 81 U/L (40-110); Anion Gap 16 mmol/L (10-20); BUN (Urea Nitrogen) 6 mg/dL (8.4-25.7); Bilirubin, Total 0.6 mg/dL (0.2-1.2); Calc. Creatinine Clearance 0 mL/min (70-130); Calcium 9.9 mg/dL (7.8-10.44); Carbon Dioxide 23 mmol/L (23-31); Chloride 103 mmol/L (98-107); Estimated GFR 91; Globulin 3.4 g/dL (2.4-3.5); Glucose 142 mg/dL (83-110); Protein, Total 7.8 g/dL (5.8-8.1); Sodium 138 mmol/L (136-145)
[2024-09-02] MEDS ORDERED: Aspirin Chewable 81 MG TAB ONE (13:14)
[2024-09-02] MEDS ORDERED: hydrALAZINE 20 MG/ML VIAL SLOW IVP PRN (14:18)
[2024-09-02] MEDS ORDERED: Acetaminophen 325 MG TAB PO PRN (14:39)
[2024-09-02] MEDS ORDERED: Ondansetron ODT 4 MG TAB PO PRN (14:39)
[2024-09-02 19:31] VITALS: BMI 19.0
[2024-09-03] MEDS: Atorvastatin Calcium 40 MG TAB PO SCH (02:26)
[2024-09-03] MEDS: Famotidine 20 MG TAB PO SCH (02:26)
[2024-09-03 04:36] LABS: #Basophils Less than 0.03 10x3/uL (0.0-0.2); #Eosinophils Less than 0.03 10x3/uL (0.0-0.7); %Basophils 0.3 % (0.0-1.0); %Eosinophils 0.3 % (0.0-10.0); %Monocytes 10.7 % (0.0-10.0); %Neutrophils 68.2 % (42.0-75.0); Hemoglobin 11.8 g/dL (14.0-18.0); Mean Corpuscular HGB CONC 32.8 g/dL (32.0-36.0); Mean Corpuscular Hemoglobin 32.3 pg (27.0-31.0); Mean Corpuscular Volume 98.6 fL (78.0-98.0); Mean Platelet Volume 10.3 fL (7.4-10.4); Platelet Count 198 10x3/uL (130-400); RBC Distribution Width 14.6 % (11.5-14.5); Red Blood Cell (RBC) Count 3.65 mill/uL (4.70-6.10)
[2024-09-03 04:57] LABS: Hemoglobin A1c 6.1 % (4.0-6.0)
[2024-09-03 05:00] LABS: Anion Gap 16 mmol/L (10-20); BUN (Urea Nitrogen) 8 mg/dL (8.4-25.7); Calc. Creatinine Clearance 50 mL/min (70-130); Calcium 9.3 mg/dL (7.8-10.44); Carbon Dioxide 22 mmol/L (23-31); Cardiac Risk 2.3 (Less than 4.5); Chloride 108 mmol/L (98-107); Cholesterol 161 mg/dl (< 200 Desired); Estimated GFR 69; Glucose 120 mg/dL (83-110); HDL Cholesterol 69 mg/dL (>60 Neg Risk); LDL Cholesterol, Calculated 78 mg/dL; Potassium 4.2 mmol/L (3.5-5.1); Sodium 142 mmol/L (136-145); Triglycerides 68 mg/dL (Less than 150)
[2024-09-03] MEDS: Losartan 25 MG TAB PO SCH (08:45)
[2024-09-03] MEDS: Aspirin 81 mg Enteric Coated Tablet PO SCH (08:45)
[2024-09-03] MEDS: Enoxaparin 40 MG (0.4 mL) SYRINGE SC SCH (08:45)
[2024-09-03] MEDS: Clopidogrel Bisulfate 75 MG TAB PO SCH (12:30)
[2024-09-03] MEDS: Atorvastatin Calcium 20 MG TAB PO SCH (20:22)
[2024-09-04 03:54] LABS: #Basophils Less than 0.03 10x3/uL (0.0-0.2); %Basophils 0.3 % (0.0-1.0); %Eosinophils 0.5 % (0.0-10.0); %Monocytes 10.8 % (0.0-10.0); %Neutrophils 56.9 % (42.0-75.0); Hematocrit 35.5 % (42.0-52.0); Hemoglobin 11.7 g/dL (14.0-18.0); Mean Corpuscular Hemoglobin 32.8 pg (27.0-31.0); Mean Corpuscular Volume 99.4 fL (78.0-98.0); Mean Platelet Volume 9.8 fL (7.4-10.4); Platelet Count 209 10x3/uL (130-400); RBC Distribution Width 14.5 % (11.5-14.5); Red Blood Cell (RBC) Count 3.57 mill/uL (4.70-6.10)
[2024-09-04 04:07] LABS: ALT (SGPT) 27 U/L (8-55); AST (SGOT) 36 U/L (5-34); Albumin 3.7 g/dL (3.4-4.8); Alkaline Phosphatase 70 U/L (40-110); Anion Gap 17 mmol/L (10-20); BUN (Urea Nitrogen) 11 mg/dL (8.4-25.7); Bilirubin, Total 0.7 mg/dL (0.2-1.2); Calc. Creatinine Clearance 55 mL/min (70-130); Calcium 9.5 mg/dL (7.8-10.44); Carbon Dioxide 22 mmol/L (23-31); Chloride 107 mmol/L (98-107); Estimated GFR 78; Globulin 3.4 g/dL (2.4-3.5); Glucose 150 mg/dL (83-110); Potassium 3.5 mmol/L (3.5-5.1); Protein, Total 7.1 g/dL (5.8-8.1); Sodium 142 mmol/L (136-145)
[2024-09-04 08:14] VITALS: BP 141/92; TEMP 97.8
[2024-09-04] MEDS: Clopidogrel Bisulfate 75 MG TAB PO SCH (08:15)
== END 2024-09-04 11:57 | disposition home or self-care (01) | DRG 149 ==
LOC: ERS 11:00 → ERHOLD 14:08 → 2SE 17:21 → OBSVTOIN 09-04 10:31
PROVIDERS: ADMIT Internal Medicine; ATTEND Internal Medicine
DX: H81.10 Benign paroxysmal vertigo, unspecified ear (principal); I34.0 Nonrheumatic mitral (valve) insufficiency; I35.8 Other nonrheumatic aortic valve disorders; I07.1 Rheumatic tricuspid insufficiency; R27.0 Ataxia, unspecified; I10 Essential (primary) hypertension; E78.5 Hyperlipidemia, unspecified
CPT/HCPCS: 36415; 36416; 70450; 70551; 71045; 80048; 80053; 80061; 83036; 83880; 84484; 85025; 93005; 93306; 93880; 96372; G0378; J1650